=== PATIENT | female | born 1980 | race Caucasian/White ===

== ENCOUNTER 2022-01-05 07:19 | Outpatient (REF) | payer OTHER, SELFPAY ==
--- NOTE | ~2022-01-05 | XR_ITS ---
EXAMINATION: XR ELBOW, RIGHT CLINICAL INFORMATION: Pain COMPARISON: None TECHNIQUE: AP, lateral, and oblique views of the right elbow. FINDINGS: The bones and soft tissues are normal. No fracture or joint effusion. Alignment is anatomic. Joint spaces are maintained. XR/XR elbow RT min 3V IMPRESSION: Normal right elbow.
== END 2022-01-05 07:20 | disposition home or self-care (01) ==
LOC: HO.HOSX 07:19
PROVIDERS: Visit Provider Physician Assistant
DX: M25.50 Pain in unspecified joint (principal); M77.11 Lateral epicondylitis, right elbow; Z82.61 Family history of arthritis
CPT/HCPCS: 73080; 99202

== ENCOUNTER → 2022-01-25 15:10 | Outpatient (BNVA) | payer OTHER, SELFPAY | PROVIDERS: PCP Pediatrics; Visit Provider Internal Medicine Rheumatology | DX: M25.50 Pain in unspecified joint (principal); M25.552 Pain in left hip; M25.562 Pain in left knee; M77.11 Lateral epicondylitis, right elbow; M22.2X9 Patellofemoral disorders, unspecified knee | CPT/HCPCS: 99202 ==